=== PATIENT | female | born 1970 | race African-American/Black ===

== ENCOUNTER 2018-11-25 11:28 | Emergency (ER) | payer MEDICAID ==
[~2018-11-25] VITALS: Ht 160 cm; Wt 73.0 kg
[2018-11-25] MEDS ORDERED: DIPHENHYDRAMINE 50MG CAPSULE PO ONE (16:30)
[2018-11-25] MEDS ORDERED: DEXAMETHASONE 4MG TABLET PO ONE (17:15)
[2018-11-25] MEDS ORDERED: FAMOTIDINE 20MG TABLET PO ONE (17:15)
[2018-11-25 17:46] VITALS: BP 119/83
== END 2018-11-25 17:47 | disposition home or self-care (01) ==
LOC: ER 11:45
DX: R22.0 Localized swelling, mass and lump, head (principal)
CPT/HCPCS: 99284; J8540; Q0163

== ENCOUNTER 2020-10-04 05:29 | Emergency (ER) | payer MEDICAID ==
[~2020-10-04] VITALS: Ht 160 cm; Wt 78.0 kg
[2020-10-04] MEDS ORDERED: SODIUM CHLORIDE 0.9% 1,000 ML IV ONE (06:30)
[2020-10-04] MEDS ORDERED: DIPHENHYDRAMINE 50MG/ML VIAL IV ONE (06:30)
[2020-10-04] MEDS ORDERED: PROCHLORPERAZINE 10MG/2ML VIAL IV ONE (06:30)
[2020-10-04 08:18] VITALS: BP 132/82
== END 2020-10-04 08:25 | disposition home or self-care (01) ==
LOC: ER 05:34
DX: R51.9 Headache, unspecified (principal); I10 Essential (primary) hypertension
CPT/HCPCS: 70450; 96361; 96374; 96375; 99284; J0780; J1200; J7030; Z7610